=== PATIENT | female | born 1975 | race Caucasian/White ===

== ENCOUNTER 2017-06-22 07:01 | Emergency (ER) | payer OTHER ==
[2017-06-22 07:25] VITALS: BP 133/91
--- NOTE | 2017-06-22 07:51 | UC ---
Throat Pain/Nasal Pako HPI - HPI Summary HPI Summary: Pt with nasal congestion, facial pressure and PND. Pt states had last weekend, improved for several day, but bad again x 3 days. Pt reports fevers, decreased appetite. Pt has used homeopathic meds with little improvement. Pt took Sudafed and APAP yesterday. No medications today. + cough. No n.v.d No concern for . + dental achiness. 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 Pt's medications reviewed this visit - History of Current Complaint Chief Complaint: UCRespiratory Stated Complaint: SINUSES Time Seen by Provider: 06/22/17 07:17 Hx Obtained From: Patient Hx Last Menstrual Period: 05/31/17 Onset/Duration: Gradual Onset, Lasting Days Severity: Moderate Pain Intensity: 4 Pain Scale Used: 0-10 Numeric Cough: Nonproductive Associated Signs & Symptoms: Positive: Sinus Discomfort, Nasal Discharge, Fever - Allergies/Home Medications Allergies/Adverse Reactions: Allergies Allergy/AdvReac Type Severity Reaction Status Date / Time No Known Allergies Allergy Verified 06/22/17 07:26 Home Medications: Home Medications ALPRAZolam TAB* [Xanax TAB*] 0.25 mg PO Q6H PRN 06/22/17 [History Confirmed 04/10] Escitalopram Oxalate [Lexapro 10 mg] 10 mg PO DAILY 06/22/17 [History Confirmed 06/22/17] PMH/Surg Hx/FS Hx/Imm Hx Previously Healthy: Yes - Surgical History Surgical History: Yes Surgery Procedure, Year, and Place: tonsilectomy - Family History Known Family History: Positive: None - Social History 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 Lives: With Family Alcohol Use: Daily Substance Use Type: Marijuana Substance Use Comment - Amount & Last Used: daily Smoking Status (MU): Never Smoked Tobacco Review of Systems Constitutional: Fever Eyes: Drainage ENT: Nasal Discharge, Sinus Congestion, Sinus Pain/Tenderness Respiratory: Negative All Other Systems Reviewed And Are Negative: Yes Physical Exam Triage Information Reviewed: Yes Appearance: Other: - congested, nasal Vital Signs: Initial Vital Signs Temp 99.4 F 06/22/17 07:18 Pulse 93 06/22/17 07:18 Resp 18 06/22/17 07:18 BP 133/91 06/22/17 07:18 Pulse Ox 100 06/22/17 07:18 Vital Signs Reviewed: Yes Eye Exam: Normal Eyes: Positive: Conjunctiva Clear ENT: Positive: Hearing grossly normal, Nasal congestion, TMs normal, Sinus tenderness, Other - TM x2 clear turbinates inflammed and boggy + thick PND uvual midline no erythema, no exudate mmoist + max sinus discomfort with palp R >L Neck exam: Normal Neck: Positive: Supple, Nontender, No Lymphadenopathy Respiratory Exam: Normal Respiratory: Positive: Chest non-tender, Lungs clear, Normal breath sounds, No respiratory distress, No accessory muscle use, Other: - mild, intermittent cough Cardiovascular Exam: Normal Cardiovascular: Positive: RRR, No Murmur, Pulses Normal Abdominal Exam: Normal Abdomen Description: Positive: Nontender, No Organomegaly, Soft Bowel Sounds: Positive: Present Musculoskeletal Exam: Normal Musculoskeletal: Positive: Strength Intact Neurological Exam: Normal Neurological: Positive: Alert Psychological Exam: Normal Psychological: Positive: Normal Response To Family Skin Exam: Normal Throat Pain/Nasal Course/Dx - Course Assessment/Plan: pt with nasal congestion, sinus discomfort, PND, fever. Rx flonase, amox. Rx diflucan as pt reports abx barbi. hydrate. secretion precaution. motrin/apap. decongestant. humidified air. return precautions. pt comfortable and in agreement with plan - Differential Dx/Diagnosis Provider Diagnoses: sinusitis Discharge - Sign-Out/Discharge Documenting (check all that apply): Discharge - Discharge Plan Condition: Stable Disposition: HOME Prescriptions: Amoxicillin PO (*) [Amoxicillin 875 MG (*)] 875 mg PO BID #20 tab Fluconazole [Diflucan 150 MG (NF)] 150 mg PO ONCE PRN #1 tab PRN Reason: vaginal yeast infection Fluticasone NASAL SPRAY 50MCG* [Flonase NASAL SPRAY 50MCG*] 2 spray BOTH NARES DAILY #1 btl Patient Education Materials: Sinusitis (ED) Referrals: Cyn Rolle MD [Primary Care Provider] - Additional Instructions: - Stay well hydrated. Drink plenty of non-alcoholic, non-caffinated beverages. - Alternate ibuprofen (Advil, Motrin) 600mg and Tylenol every 3 hours for pain or fever. Take with food. Do NOT take for more than 4-5 days. - These infections are spread by secretions - do NOT share eating or drinking utensils - clean items you share with other people such as cell phones, computer mouse, TV remote, computer tablets, etc. After you have taken antibiotics for 3 days, change your toothbrush and your pillowcase. - get plenty of restful sleep - humidify the air in the room where you sleep - boil water, run a hot steam shower, vaporizer, cups of water by heat register - use nasal spray as instructed - okay to take over the counter decongestant and cough medication - get plenty of restful sleep. -you have been given a prescription for diflucan - use as needed for a yeast infection - contact your doctor or return with questions or concerns - Billing Disposition and Condition Condition: STABLE Disposition: HOME
== END 2017-06-22 07:45 | disposition home or self-care (01) ==
LOC: UCCORT 07:01
DX: J32.9 Chronic sinusitis, unspecified (principal)
CPT/HCPCS: 99202; G0463

== ENCOUNTER 2017-07-19 20:06 | Emergency (ER) | payer OTHER ==
[2017-07-19 20:47] VITALS: BP 110/82
[2017-07-19] MEDS ORDERED: Ciprofloxacin 0.3% OPTH.SOL* 2.5 ML BTL LEFT EYE ONE (21:05)
--- NOTE | 2017-07-19 21:07 | UC ---
Eye Complaint HPI - HPI Summary HPI Summary: Prior to leaving to [place] 7 days ago patient thought she was developing a stye in her left eye today patient has returned and has 2 pustulous underneath the lateral aspect of her left upper eyelid. Does not wear contact lenses not have visual disturbances did not have drainage - History of Current Complaint Chief Complaint: UCEye Stated Complaint: BILATERAL EYE COMPLAINT Time Seen by Provider: 07/19/17 20:57 Hx Obtained From: Patient Hx Last Menstrual Period: 06/19/17 ?: No Onset/Duration: Sudden Onset, Lasting Weeks - 1, Still Present Timing: Constant Severity Initially: Mild Severity Currently: Mild Pain Intensity: 2 Pain Scale Used: 0-10 Numeric Location of Injury: Eye Lid (upper) - Left lateral Alleviating Factor(s): Nothing Associated Signs And Symptoms: Positive: Negative - Allergies/Home Medications Allergies/Adverse Reactions: Allergies Allergy/AdvReac Type Severity Reaction Status Date / Time codeine Allergy Vomiting Verified 07/19/17 20:44 PMH/Surg Hx/FS Hx/Imm Hx Previously Healthy: No Psychological History: Anxiety - Surgical History Surgical History: Yes Surgery Procedure, Year, and Place: tonsilectomy - Family History Known Family History: Positive: None - Social History Occupation: Employed Full-time Lives: With Family Alcohol Use: Daily Alcohol Amount: wine Substance Use Type: Marijuana Substance Use Comment - Amount & Last Used: multiple times a week Smoking Status (MU): Never Smoked Tobacco Review of Systems Constitutional: Negative Skin: Negative Eyes: Negative ENT: Negative Respiratory: Negative Cardiovascular: Negative Gastrointestinal: Negative Genitourinary: Negative Motor: Negative Neurovascular: Negative Musculoskeletal: Negative Neurological: Negative Psychological: Negative Is Patient Immunocompromised?: No All Other Systems Reviewed And Are Negative: Yes Physical Exam Triage Information Reviewed: Yes Appearance: Well-Appearing, No Pain Distress, Well-Nourished Vital Signs: Initial Vital Signs Temp 98.9 F 07/19/17 20:41 Pulse 75 07/19/17 20:41 Resp 15 07/19/17 20:41 BP 110/82 07/19/17 20:41 Pulse Ox 99 07/19/17 20:41 Vital Signs Reviewed: Yes Eye Exam: Normal Eyes: Positive: Conjunctiva Clear, Other: - Number ENT Exam: Normal ENT: Positive: Normal ENT inspection, Hearing grossly normal, Pharynx normal, TMs normal, Uvula midline. Negative: Nasal congestion, Tonsillar swelling, Muffled voice, Hoarse voice, Dental tenderness, Sinus tenderness Dental Exam: Normal Neck exam: Normal Neck: Positive: Supple, Nontender, No Lymphadenopathy Respiratory Exam: Normal Respiratory: Positive: Chest non-tender, Normal breath sounds, No respiratory distress, No accessory muscle use Cardiovascular Exam: Normal Cardiovascular: Positive: Pulses Normal - Lambert slowly, Brisk Capillary Refill Musculoskeletal Exam: Normal Musculoskeletal: Positive: Strength Intact, ROM Intact, No Edema Neurological Exam: Normal Neurological: Positive: Alert, Muscle Tone Normal Psychological Exam: Normal Skin Exam: Normal Eye Complaint Course/Dx - Course Course Of Treatment: Cipro eyedrops 1 drop left eye every 4 hours while awake. Follow up Friday or Friday with ophthalmology, referrals and information given for 3 different ophthalmology groups. Warm compresses for left eye - Differential Dx/Diagnosis Provider Diagnoses: Developing stye to left eye Discharge - Sign-Out/Discharge Documenting (check all that apply): Discharge/Admit/Transfer, Post-Discharge Follow Up - Discharge Plan Condition: Stable Disposition: HOME Patient Education Materials: Stye (ED), How to Use Eye Drops (ED), Warm Compress or Soak (ED) Referrals: Sebastian Pollock MD [Medical Doctor] - Darius Mendiola MD [Medical Doctor] - Mamadou TAPIA,Zaida [Medical Doctor] - Additional Instructions: Call Friday for an ophthalmology appointment on Friday as we discussed. Warm compresses to left eye use the eyedrops while awake - Billing Disposition and Condition Condition: STABLE Disposition: HOME
== END 2017-07-19 21:25 | disposition home or self-care (01) ==
LOC: UCCORT 20:06
DX: H00.024 Hordeolum internum left upper eyelid (principal); Z88.5 Allergy status to narcotic agent
CPT/HCPCS: 99212; A9270-GY; G0463